=== PATIENT | male | born 1970 | race Hispanic/Latino ===

== ENCOUNTER 2016-08-03 11:04 | Emergency (ER) | payer MEDICAID ==
[2016-08-03 11:14] VITALS: BP 133/91; PULSE 75; TEMP 97; BMI 26.9
[2016-08-03 11:38] VITALS: O2SAT 98
[2016-08-03] MEDS ORDERED: TDAP Vaccine 0.5 mL Syr IM ONE (12:21)
--- NOTE | 2016-08-03 12:29 | ED PDOC ---
HPI: Wound Care - HPI Time Seen by Provider: 08/03/16 12:20 Chief Complaint (Nursing): Abnormal Skin Integrity Chief Complaint (Provider): Finger laceration History Per: Patient Exam Limitations: no limitations Onset/Duration Of Symptoms: Hrs Current Symptoms Are (Timing): Still Present Location Of Injury: Left: Hand (Laceration to left middle phalanx.) Additional Complaint(s): Braulio Lira, a 46 year old male, presents to the ED with a laceration to his left middle phalanx. The patient states that while using a pipe grinder needle tip, the blade shattered and cut his finger. The patient states that he does not recall the last time he had a tetanus shot. Past Medical History Reviewed: Historical Data, Nursing Documentation, Vital Signs Vital Signs: Last Vital Signs Temp 97 F L 08/03/16 11:13 Pulse 75 08/03/16 11:13 Resp BP 133/91 H 08/03/16 11:13 Pulse Ox 98 08/03/16 11:33 - Family History Family History: States: Unknown Family Hx - Immunization History Hx Tetanus Toxoid Vaccination: No Hx Influenza Vaccination: No Hx Pneumococcal Vaccination: No - Home Medications Home Medications: Ambulatory Orders Medication Instructions Recorded Pantoprazole Sodium [Protonix] 40 mg PO DAILY #14 ect 08/01/16 Cephalexin [Keflex] 500 mg PO QID #20 capsule 08/03/16 - Allergies Allergies/Adverse Reactions: Allergies Allergy/AdvReac Type Severity Reaction Status Date / Time No Known Allergies Allergy Verified 08/03/16 11:33 Review of Systems Musculoskeletal: Positive for: Other (2.5 'U' shaped flap laceration to the dorsal surface of the middle phalanx.) Physical Exam - Reviewed Nursing Documentation Reviewed: Yes Vital Signs Reviewed: Yes - Physical Exam Appears: Positive for: Non-toxic, No Acute Distress Extremity: Positive for: Normal ROM (Full range of motion actively to the left middle phalanx.). Negative for: Deformity (No deformities to left middle phalanx.) Neurologic/Psych: Positive for: Alert, Oriented - ECG O2 Sat by Pulse Oximetry: 98 (RA) Pulse Ox Interpretation: Normal - Progress ED Course And Treament: Tdap 0.5 ml IM x 1 dose KEflex 500 mg x 1 dose Hand xry Left: no acute fx noted Procedure: Wound Repair - Time Performed Time Performed: 13:20 - Time Out Time Out: Site verified - Consent Obtained Consent obtained: Verbal - Performed by Performed by: Mid-level Provider - Indications Indication(s):: Laceration - Location Location:: Left, Hand Finger:: Left, Index Shape:: Curvilinear Dimensions Length cm: 2.5 cm Depth:: Epidermis - Anesthetic Technique Anesthetic Technique: Regional block Local/Regional Anesthetic:: Lidocaine 1% - Irrigated Irrigated with ml of normal saline: 150ml - Complexity Complexity:: Simple (one layer) - Wound repair method Sutures:: # (six), Size (4-0 nylon sutures), Type, Technique (interrupted) - Patient tolerated procedure Patient Tolerated Procedure:: Well Medical Decision Making Medical Decision Makin:20 Initial Impression: 46 year old male presenting with laceration to the left middle phalanx Initial Plan: * Boostrix 0.5ml IM * Keflex 500mh PO * Lidocaine 1% (20ml) 1ml Inj * RAD left second digit Scribe Attestation Documented by Renae Luna acting as a scribe for Sherie Quiñones PA-C. Provider Attestation All medical record entries made by the Scribe were at my direction and personally dictated by me. I have reviewed the chart and agree that the record accurately reflects my personal performance of the history, physical exam, medical decision making, and the department course for this patient. I have also personally directed, reviewed, and agree with the discharge instructions and disposition. Disposition - Clinical Impression Clinical Impression: Finger laceration - Patient ED Disposition Is Patient to be Admitted: No - Disposition Disposition: Routine/Home Disposition Time: 13:39 Condition: FAIR Additional Instructions: RETURN TO ED OR PMD IN 2 DAYS FOR WOUND CHECK RETURN TO ED OR PMD IN 7 TO 10 DAYS FOR REMOVAL OF SUTURES Prescriptions: Cephalexin [Keflex] 500 mg PO QID #20 capsule Instructions: Finger Laceration (ED) Forms: [facility] ED School/Work Excuse
[2016-08-03] MEDS ORDERED: Lidocaine 1% Inj (20ml) IJ ONE (12:46)
--- NOTE | 2016-08-03 14:30 | RAD ---
PROCEDURE: Left Index finger radiographs. HISTORY: r/o bony injury has laceration COMPARISON: None. TECHNIQUE: AP radiograph of the left hand, as well as spot oblique and lateral images of index finger were obtained. FINDINGS: LEFT INDEX FINGER: Normal left index finger, without fracture or focal lesion. Remainder of the left hand (as seen on the AP view) grossly intact. JOINTS: Normal. SOFT TISSUES: No radiopaque/visualize foreign body. OTHER FINDINGS: None. IMPRESSION: No acute findings related to/accounting for the clinical presentation.
== END 2016-08-03 13:48 | disposition home or self-care (01) ==
LOC: H.ER 11:04
DX: S61.203A Unspecified open wound of left middle finger without damage to nail, initial encounter (principal); W29.0XXA Contact with powered kitchen appliance, initial encounter; Y92.89 Other specified places as the place of occurrence of the external cause